=== PATIENT | female | born 1985 | race Caucasian/White ===

== ENCOUNTER 2017-12-07 10:51 | Emergency (ER) | payer MEDICAID ==
[~2017-12-07] VITALS: Ht 154.9 cm; Wt 68.2 kg
[~2017-12-07 10:51] MED LIST: HYDROCODONE-APA1 TAB PO; IBUPROFEN600 MG PO; PERCOCET 5-3251 TAB PO; REGLAN5 MG PO; WELLBUTRIN100 MG PO; ZOFRAN8 MG PO
[2017-12-07 11:04] VITALS: Ht 154.9 cm; Wt 68.2 kg
[2017-12-07 11:50] LABS: BASOPHILS 0.1 % (0-2); HEMATOCRIT 44.7 % (36.0-48.0); HEMOGLOBIN 15.4 g/dL (12-16); IMMATURE GRANULOCYTES 0.2 % (0-5); LYMPHOCYTES 22.5 % (15-50); MCH 31.6 pg (26.0-34.0); MCHC 34.5 g/dL (31.0-37.0); MCV 91.8 fL (80.0-100.0); MONOCYTES 3.4 % (2-11); NEUTROPHILS 72.8 % (40-80); RBC 4.87 10x6/uL (4.00-5.40); RDW 13.1 % (11.5-14.5); WBC 8.7 10x3/uL (4.8-10.8)
[2017-12-07 11:53] LABS: PLATELET COUNT 242 10x3/uL (130-400)
[2017-12-07 12:04] LABS: ALBUMIN 3.7 g/dL (3.4-5.0); ALKALINE PHOSPHATASE 86 U/L (46-116); ALT (SGPT) 23 U/L (10-68); BILIRUBIN - TOTAL 0.46 mg/dL (0.2-1.3); CALC OSMOLALITY 276 mosm/kg (275-300); CHLORIDE - SERUM 106 mmol/L (98-107); CREATININE - SERUM 0.8 mg/dL (0.6-1.3); POTASSIUM - SERUM 3.9 mmol/L (3.5-5.1); PROTEIN - SERUM 7.7 g/dL (6.4-8.2); SODIUM 140 mmol/L (136-145); UREA NITROGEN 11 mg/dL (7-18); eGFR NON AFRICAN AMERICAN 87 mL/min (90-120)
[2017-12-07 12:06] LABS: GLUCOSE 88 mg/dL (74-106)
[2017-12-07 12:15] LABS: AMYLASE - SERUM 44 U/L (25-115); CKMB 0.6 U/L (0.0-3.6); CREATINE KINASE 85 UL (21-215); LIPASE 117 U/L (73-393); TROPONIN-I < 0.017 ng/mL (0.000-0.060)
[2017-12-07 13:10] LABS: APPEARANCE CLOUDY (CLEAR); BILIRUBIN NEGATIVE (NEGATIVE); COLOR YELLOW (YELLOW); GLUCOSE NEGATIVE (NEGATIVE); KETONE NEGATIVE (NEGATIVE); NITRITE POSITIVE (NEGATIVE); PROTEIN NEGATIVE (NEGATIVE); SPECIFIC GRAVITY 1.015 (1.005-1.020); UROBILINOGEN NORMAL (NORMAL)
[2017-12-07 13:11] LABS: BACTERIA MANY /hpf (NONE SEEN); MUCUS >1+ /lpf (NONE SEEN); RED CELLS - URINE RARE /hpf (0-5)
[2017-12-07 13:12] LABS: WHITE CELLS - URINE 0-5 /hpf (0-5)
[2017-12-07 13:24] LABS: HCG URINE NEGATIVE (NEGATIVE)
[2017-12-07] MEDS ORDERED: BENTYL 20 MG TA20 MG PO (15:49)
[2017-12-07] MEDS ORDERED: COMPAZINE5 MG PO (15:49)
[2017-12-07] MEDS ORDERED: MACROBID100 MG PO (15:49)
[2017-12-07 16:32] VITALS: BP 111/74
== END 2017-12-07 16:34 | disposition home or self-care (01) ==
LOC: D.ER 10:51
PROVIDERS: Family Medicine
DX: N39.0 Urinary tract infection, site not specified (principal); R11.2 Nausea with vomiting, unspecified; R19.7 Diarrhea, unspecified; E11.9 Type 2 diabetes mellitus without complications; F17.200 Nicotine dependence, unspecified, uncomplicated

== ENCOUNTER 2019-05-19 10:54 | Emergency (ER) | payer MEDICAID ==
[~2019-05-19] VITALS: Ht 154.9 cm; Wt 81.8 kg
[~2019-05-19 10:54] MED LIST changes: +BENTYL 20 MG TA20 MG PO; +COMPAZINE5 MG PO; +MACROBID100 MG PO
[2019-05-19 11:06] VITALS: Ht 154.9 cm; Wt 81.8 kg
[2019-05-19 12:30] LABS: BASOPHILS 0.2 % (0-2); HEMATOCRIT 45.1 % (36.0-48.0); IMMATURE GRANULOCYTES 0.3 % (0-5); LYMPHOCYTES 28.6 % (15-50); MCH 31.1 pg (26.0-34.0); MCHC 33.3 g/dL (31.0-37.0); MCV 93.6 fL (80.0-100.0); MONOCYTES 2.9 % (2-11); RBC 4.82 10x6/uL (4.00-5.40); RDW 13.4 % (11.5-14.5); WBC 10.1 10x3/uL (4.8-10.8)
[2019-05-19 12:51] LABS: INR 0.93 (0.85-1.17); PROTIME 12.5 SECONDS (11.6-15.0)
[2019-05-19 12:54] LABS: PLATELET COUNT 301 10x3/uL (130-400)
[2019-05-19 13:11] LABS: CALC OSMOLALITY 281 mosm/kg (275-300); CALCIUM 9.1 mg/dL (8.5-10.1); CARBON DIOXIDE 26.2 mmol/L (21.0-32.0); CHLORIDE - SERUM 105 mmol/L (98-107); CREATININE - SERUM 0.7 mg/dL (0.6-1.3); GLUCOSE 93 mg/dL (74-106); POTASSIUM - SERUM 4.4 mmol/L (3.5-5.1); SODIUM 141 mmol/L (136-145); UREA NITROGEN 14 mg/dL (7-18); eGFR NON AFRICAN AMERICAN > 90 mL/min (90-120)
[2019-05-19 13:28] LABS: ALBUMIN 3.9 g/dL (3.4-5.0); ALKALINE PHOSPHATASE 94 U/L (30-120); ALT (SGPT) 55 U/L (10-68); CKMB 0.3 U/L (0.0-3.6); CREATINE KINASE 125 UL (21-215); PRO BNP 33 pg/mL (0-125); PROTEIN - SERUM 7.5 g/dL (6.4-8.2)
[2019-05-19 13:36] LABS: TROPONIN-I < 0.017 ng/mL (0.000-0.060)
[2019-05-19] MEDS ORDERED: ZOFRAN ODT4 MG/UDTAB PO (13:53)
[2019-05-19 15:01] VITALS: BP 118/70
== END 2019-05-19 15:02 | disposition home or self-care (01) ==
LOC: D.ER 10:54
PROVIDERS: Family Medicine
DX: J11.1 Influenza due to unidentified influenza virus with other respiratory manifestations (principal); E11.9 Type 2 diabetes mellitus without complications